=== PATIENT | male | born 1985 | race African-American/Black ===

== ENCOUNTER 2017-07-27 03:09 | Emergency (ER) | payer SELFPAY ==
[~2017-07-27] VITALS: Ht 190.5 cm; Wt 127.0 kg
[~2017-07-27 03:09] MED LIST: EC NAPROSYN500 MG PO; PERCOCET 325 MG1 TA2 PO
[2017-07-27 03:39] VITALS: BP 148/93
--- NOTE | 2017-07-27 03:53 | ED GENERAL ADULT ---
History of Present Illness General Chief Complaint: General Adult Stated Complaint: STD? Source: patient Exam Limitations: no limitations Vital Signs & Intake/Output Vital Signs & Intake/Output Vital Signs Date Time Temp Pulse Resp B/P B/P Pulse O2 O2 Flow FiO2 Mean Ox Delivery Rate 07/27 0339 95.7 96 16 148/93 97 Room Air Allergies Coded Allergies: MDX - Seafood (SEAFOOD) (Severe, THROAT CLOSING 08/06/12) Reconcile Medications Doxycycline Hyclate 100 MG TABLET 1 TAB PO BID infection Naproxen (EC-Naprosyn) 500 MG ECT 1 TAB PO BID PAIN OXYCODONE HCL/ACETAMINOPHEN (Percocet 5-325 MG Tablet) 325 MG/5 MG TAB 1-2 TAB PO Q4-6 PRN PRN PAIN Triage Note: 32YO MALE TO TRIAGE REQUESTING TEST FOR TRICH. STATES HIS "EX-GIRLFRIEND WAS DXED" ALSO STATES HIS TESTICLES ARE SWOLLEN Triage Nurses Notes Reviewed? yes Onset: Gradual Duration: hour(s): Timing: recent history Injury Environment: home Severity: mild Modifying Factors: Improves With: rest. Associated Symptoms: BILATERAL TESTICULAR PAIN HPI: 32 yo gentleman presents with bilateral testicular pain since this evening. He shares that his girl friend was recently diagnosed with trichomonas. "And this evening, I noticed that my testicles were burning when I went to the bathroom." He states, "I'm a sex-aholic... and I think I have an infection." He notes no noticable penile discharge. Both of his testicles are painful. He has no abdominal pain, fever, chills, nausea, vomiting, diarrhea. Past History Travel History Traveled to [place] past 21 day No Medical History Any Pertinent Medical History? see below for history Neurological: NONE EENT: NONE Cardiovascular: NONE Respiratory: NONE Gastrointestinal: NONE Hepatic: NONE Renal: NONE Musculoskeletal: NONE Psychiatric: NONE Endocrine: NONE Surgical History Surgical History: none Psychosocial History What is your primary language Yi Tobacco Use: Current Daily Use Daily Tobacco Use Amount/Type: => 5 Cigarettes daily Family History Hx Contributory? No Review of Systems Review of Systems Constitutional: Reports: no symptoms. EENTM: Reports: no symptoms. Respiratory: Reports: no symptoms. Cardiovascular: Reports: no symptoms. GI: Reports: no symptoms. Genitourinary: Reports: no symptoms. Musculoskeletal: Reports: no symptoms. Skin: Reports: no symptoms. Neurological/Psychological: Reports: no symptoms. Hematologic/Endocrine: Reports: no symptoms. Immunologic/Allergic: Reports: no symptoms. All Other Systems: Reviewed and Negative Physical Exam Physical Exam General Appearance: well developed/nourished, no apparent distress Head: atraumatic, normal appearance Eyes: Bilateral: normal appearance. Ears, Nose, Throat: normal pharynx Neck: normal inspection, supple, full range of motion Respiratory: normal breath sounds Gastrointestinal: normal bowel sounds Neurologic/Psych: no motor/sensory deficits, awake, alert, oriented x 3 Comments: genital exam: no hernias bilateral tenderness at epididymi testicles with normal lie testicles themselves are not tender. Core Measures ACS in differential dx? No CVA/TIA Diagnosis: No Sepsis Present: No Sepsis Focused Exam Completed? No Progress Differential Diagnoses I considered the following diagnoses in my evaluation of the patient: trichomonas vs sti vs other. Plan of Care: Orders Procedure Date/time Status GC DNA PROBE 07/27 352 Active DNA PROBE 07/27 310 Active Initial ED EKG: none Departure Departure Disposition: HOME OR SELF CARE Condition: Stable Clinical Impression Primary Impression: Trichomonas exposure Secondary Impressions: Sexually transmitted disease (STD) Referrals: Patient Has No Primary Care Dr (PCP/Family) Departure Forms: Customer Survey General Discharge Information Prescriptions: Current Visit Scripts Doxycycline Hyclate 1 TAB PO BID #20 TAB Critical Care Note Critical Care Note Critical Care Time: non-applicable
[2017-07-27] MEDS ORDERED: DOXYCYCLINE HY100 M4 PO (03:57)
== END 2017-07-27 04:15 ==
LOC: ERH 03:09
DX: A64 Unspecified sexually transmitted disease (principal)
CPT/HCPCS: 87491; 87591; 96372; J0456; J0696